=== PATIENT | male | born 1965 | race Caucasian/White ===

== ENCOUNTER 2022-03-26 17:45 | Inpatient (IN) | payer OTHER ==
[~2022-03-26] VITALS: Ht 185.4 cm; Wt 149.0 kg
[~2022-03-26 17:45] MED LIST: FLEXERIL5 MG PO
[2022-03-26 19:34] LABS: BASOPHIL 0.4 % (0-2); EOSINOPHIL 1.2 % (0-5); HCT 44.5 % (42.0-52.0); HGB 14.6 g/dl (13.2-18.0); LYMPHOCYTE 15.2 % (15-48); MCH 28.2 pg (25.0-31.0); MCHC 32.8 g/dL (32.0-36.0); MCV 86.1 fL (78.0-100.0); MONOCYTE 7.1 % (0-12); MPV 8.9 fL (6.0-9.5); NEUTROPHIL 75.3 % (41-80); NRBC 0; PLT 418 K/uL (150-400); RBC 5.17 M/uL (4.70-6.00); RDW 13.1 % (11.5-14.0); WBC 11.8 K/uL (4.0-10.5)
[2022-03-26 19:59] LABS: BUN/CREAT RATIO (CALC) 14.5 RATIO; CREATININE 0.62 mg/dL (0.67-1.17); POTASSIUM 3.7 mmol/L (3.5-5.1)
[2022-03-26 20:16] LABS: LACTIC ACID 1.7 mmol/L (0.4-1.9)
--- NOTE | 2022-03-27 00:25 | NUR ---
PATIENT ARRIVE TO FLOOR VIA STRECHER, WALKED TO BED, STEADY GAIT NOTED. ALERT AND ORIENTED. PATIENT TALKS TO GORDON BEAR FRIEND. BED LOCKED IN LOW POSITION. CALL LIGHT IN REACH.
[2022-03-27] MEDS ORDERED: ZESTRIL2.5 MG PO (00:57)
[2022-03-27] MEDS ORDERED: METFORMIN HCL500 MG PO (00:57)
[2022-03-27] MEDS ORDERED: JANUMET 50-1,01 EACH PO (00:59)
[2022-03-27] MEDS ORDERED: JARDIANCE25 MG PO (01:00)
[2022-03-27] MEDS ORDERED: SUPER B MAXI C0.4 MG PO (01:01)
[2022-03-27] MEDS ORDERED: BETAMETHASONE V15 G1 TOP (01:05)
[2022-03-27] MEDS ORDERED: VIBRAMYCIN100 MG PO (01:07)
[2022-03-28 05:05] LABS: BASOPHIL 0.5 % (0-2); EOSINOPHIL 2.6 % (0-5); HCT 44.3 % (42.0-52.0); HGB 14.1 g/dl (13.2-18.0); LYMPHOCYTE 21.3 % (15-48); MCH 27.8 pg (25.0-31.0); MCHC 31.8 g/dL (32.0-36.0); MCV 87.4 fL (78.0-100.0); MONOCYTE 8.3 % (0-12); MPV 8.5 fL (6.0-9.5); NEUTROPHIL 66.5 % (41-80); NRBC 0; PLT 350 K/uL (150-400); RBC 5.07 M/uL (4.70-6.00); RDW 13.2 % (11.5-14.0)
[2022-03-28 05:21] LABS: BUN/CREAT RATIO (CALC) 13.1 RATIO; CREATININE 0.61 mg/dL (0.67-1.17); VANCOMYCIN, TROUGH 14.5 ug/mL (10-20)
[2022-03-28 17:55] LABS: INR 1.09 (0.9-1.2); PROTHROMBIN TIME 13.5 SECONDS (11.8-13.4)
--- NOTE | 2022-03-28 20:36 | NUR ---
1944: PATIENT OFF FLOOR FOR SURGERY, PER-OP BATH COMPLETED, PAPERWORK AND CHART WITH SURGERY TEAM. FAMILY AT BEDSIDE WITH PATIENT.
--- NOTE | 2022-03-29 01:23 | NUR ---
2199 PATIENT RETURNED TO FLOOR CONDITION STABLE, VSS, TRANPORTED VIA BED.FAMILY IN ROOM, REORIENTED TO UNIT.
[2022-03-29 06:40] LABS: BASOPHIL 0.6 % (0-2); EOSINOPHIL 1.5 % (0-5); HCT 44.5 % (42.0-52.0); HGB 14.1 g/dl (13.2-18.0); LYMPHOCYTE 13.3 % (15-48); MCH 27.9 pg (25.0-31.0); MCHC 31.7 g/dL (32.0-36.0); MCV 88.1 fL (78.0-100.0); MONOCYTE 9.1 % (0-12); MPV 8.6 fL (6.0-9.5); NEUTROPHIL 74.6 % (41-80); NRBC 0; PLT 341 K/uL (150-400); RBC 5.05 M/uL (4.70-6.00); RDW 13.3 % (11.5-14.0); WBC 8.9 K/uL (4.0-10.5)
[2022-03-29 07:02] LABS: CREATININE 0.91 mg/dL (0.67-1.17); POTASSIUM 3.8 mmol/L (3.5-5.1)
[2022-03-30 06:12] LABS: BASOPHIL 0.5 % (0-2); EOSINOPHIL 1.9 % (0-5); HGB 13.2 g/dl (13.2-18.0); LYMPHOCYTE 15.6 % (15-48); MCH 27.7 pg (25.0-31.0); MCHC 31.4 g/dL (32.0-36.0); MCV 88.2 fL (78.0-100.0); MONOCYTE 9.8 % (0-12); MPV 8.7 fL (6.0-9.5); NEUTROPHIL 71.6 % (41-80); NRBC 0; PLT 343 K/uL (150-400); RBC 4.76 M/uL (4.70-6.00); RDW 13.3 % (11.5-14.0); WBC 8.3 K/uL (4.0-10.5)
[2022-03-30 06:25] LABS: BUN/CREAT RATIO (CALC) 10.4 RATIO; CREATININE 1.06 mg/dL (0.67-1.17); POTASSIUM 3.6 mmol/L (3.5-5.1)
[2022-04-01] MEDS ORDERED: BACTRIM DS TAB1 EACH PO (07:35)
[2022-04-01] MEDS ORDERED: KEFLEX250 MG PO (07:35)
== END 2022-04-01 10:07 | disposition home or self-care (01) | DRG 856 ==
LOC: FER 17:45 → FMS 21:47
PROVIDERS: Family Medicine; Hospitalist; Nurse Practitioner Family; Podiatrist Foot & Ankle Surgery; ADMIT Internal Medicine
PROC: 0S9M0ZZ Drainage of Right Metatarsal-Phalangeal Joint, Open Approach (ICD-10-PCS; 2022-03-28)
PROC: 0QBN0ZX Excision of Right Metatarsal, Open Approach, Diagnostic (ICD-10-PCS; principal; 2022-03-28 20:00)
DX: T81.41XA Infection following a procedure, superficial incisional surgical site, initial encounter (principal); A48.0 Gas gangrene; T81.31XA Disruption of external operation (surgical) wound, not elsewhere classified, initial encounter; M86.9 Osteomyelitis, unspecified; Z68.41 Body mass index [BMI] 40.0-44.9, adult; E11.52 Type 2 diabetes mellitus with diabetic peripheral angiopathy with gangrene; Z20.822 Contact with and (suspected) exposure to COVID-19; K21.9 Gastro-esophageal reflux disease without esophagitis; E11.69 Type 2 diabetes mellitus with other specified complication; L97.519 Non-pressure chronic ulcer of other part of right foot with unspecified severity; E11.621 Type 2 diabetes mellitus with foot ulcer; L03.031 Cellulitis of right toe; I10 Essential (primary) hypertension; E66.01 Morbid (severe) obesity due to excess calories; F41.9 Anxiety disorder, unspecified; B95.7 Other staphylococcus as the cause of diseases classified elsewhere; Y83.8 Other surgical procedures as the cause of abnormal reaction of the patient, or of later complication, without mention of misadventure at the time of the procedure; Z98.890 Other specified postprocedural states; Z79.84 Long term (current) use of oral hypoglycemic drugs; Z79.899 Other long term (current) drug therapy
CPT/HCPCS: 36415; 73630; 73718; 80048; 80202; 82962; 83605; 84145; 85025; 85610; 87040; 87070; 87075; 87077; 87186; 87205; 94010; J0692; J1650; J1815; J1885; J2250; J2405; J2704; J3010; J3370; J7030; J7040; J7050; J7120; U0002